=== PATIENT | male | born 1965 | race Caucasian/White ===

== ENCOUNTER → 2017-02-04 | Outpatient (REF) ==
--- NOTE | 2017-02-05 02:49 | REP ---
Clinical: Pain and disability. Technique: AP, lateral, cone down views of the lumbosacral spine. Findings: Alignment and lordosis maintained. No acute fracture / compression injury or subluxation. Moderate degenerative disc osteophyte complex at the L3-4, L4-5, and L5-S1 levels. Findings include marginal osteophytes, endplate sclerosis, disc space narrowing and hypertrophic facet changes. Impression: Moderate multilevel degenerative changes. Signed by Sang Blood MD 02/05/2017 02:41 A
== END ==
LOC: M SMT 13:33
PROVIDERS: ATTEND Internal Medicine
DX: Z02.71 Encounter for disability determination (principal)